=== PATIENT | female | born 1985 | race Caucasian/White ===

== ENCOUNTER → 2018-06-13 10:26 | Outpatient (CLI) | payer OTHER, SELFPAY ==
[2018-06-13 11:01] LABS: Mucous, Urine 0 SEEN /hpf (<or=2+)
[2018-06-13 11:38] LABS: Color, Urine Yellow (Yellow); Glucose, Dipstick Normal (Normal); Ketone-Dipstick Negative (Negative); Leukocyte Esterase-Dipstick 500 /ul (Negative); Nitrite-Dipstick Negative (Negative); Occult Blood-Urine 250 /ul (Negative); Protein-Dipstick 100 mg/dl (Negative); Urine Bilirubin Dipstick Negative (Negative); Urine Clarity Sl. Cloudy (Clear); Urine Urobilinogen Normal (Normal)
[2018-06-13 11:53] LABS: Bacteria 1+ /hpf (None Seen); Red Blood Cells-Urine 25-50 SEEN /hpf (0-5); Squamous Epithelial Cells - UA 0-5 SEEN /hpf (5-10); White Blood Cells 25-50 SEEN /hpf (0-5)
== END ==
PROVIDERS: Visit Provider Physician Assistant Surgical
DX: R30.0 Dysuria (principal)
CPT/HCPCS: 81001; 87086; 87088; 87186

== ENCOUNTER → 2018-10-12 18:30 | Outpatient (CLI) | payer OTHER, SELFPAY ==
[2018-07-27 09:02] VITALS: BMI 30.5
[2018-10-17 16:23] LABS: HPV Reflexed? NOT INDICATED
--- OUTSIDE RECORDS SUMMARY | 2018-12-17 08:16 | XMS RPT_ITS ---
:1985 Author Organization OHIP Care Team Providers Name Role Phone Abbi Perez Attending Unavailable Abbi Perez Referring Unavailable Claudio Do Attending Unavailable Claudio Do Attending Unavailable Claudio Do Referring Unavailable Sanna Brown Attending Unavailable PROBLEMS PROBLEMS DATE TYPE CONDITION / CODE ATTENDING STATUS SOURCE 10/13/2018 Unknown Z12.4 - Abbi Perez Active [place] Encounter for Community screening for Hospital malignant Repository neoplasm of cervix / Z12.4(ICD-10) 06/13/2018 Unknown R30.0 - Dysuria Claudio Do Active [place] / R30.0(ICD-10) [facility] Hospital Repository 06/12/2018 Unknown N39.0 - Urinary Claudio Do Active [place] tract infection, Community site not Hospital specified / Repository N39.0(ICD-10) PROCEDURES PROCEDURES No Procedure Records FoundRESULTS RESULTS PAP I-G W/RFX HRHPV Collected: 10/12/2018 Status: F Source: [place] 3:30 PM REPLACED BY [facility] REPOSITORY Order Comment: CYTOLOGY INFORMATION: - CLINICAL INFORMATION: - DATE LMP/MENOPAUSE: 09/30/18 - COLLECTION VIAL: Thin Prep Vial - SOCIAL WORKER PALLIATIVE CARE SOURCE: CERVICAL/ENDOCERVICAL - COLLECTION TECHNIQUE: BRUSH/SPATULA Specimen Comment: [id number] Specimen Comment: Source.............Cervix;Endocervix Specimen Comment: LMP / Prev Treat...[id number]=[id number] Specimen Comment: No. of containers..01 ThinPrep Vial TYPE CODE TESTS RESULT OUT OF RANGE REFERENCE UNITS LAB L7400.0800 . Normal DIAGN Comment Result Comment: NEGATIVE FOR INTRAEPITHELIAL LESION OR MALIGNANCY. LAB L7400.0900 . Normal ADEQ Comment Result Comment: Satisfactory for evaluation. No endocervical component is identified. LAB L7400.1400 . Normal PERFORM Comment Result Comment: Paola Jeronimo, Cement Loader (ASCP) LAB L7400.2575 . Normal TEST METHOD Comment Result Comment: This liquid based ThinPrep(R) pap test was screened with the use of an image guided system. LAB L7400.2600 . Normal . COMM LAB L7400.2700 . Normal PAPSMR Comment Result Comment: The Pap smear is a screening test designed to aid in the detection of premalignant and malignant conditions of the uterine cervix. It is not a diagnostic procedure and should not be used as the sole means of detecting cervical cancer. Both false-positive and false-negative reports do occur. LAB L7400.2800 . Normal HPV RFLX Comment Result Comment: The HPV DNA reflex criteria were not met with this specimen result therefore, no HPV testing was performed. Performed at: [address] [id number] Equal Opportunity Assistant: Anna Aguirre MD, Phone: [phone] Performed By: #### L7400.0350 #### [facility] (refer to report for specific site) refer to report for address and phone number URGENT CARE VISIT Observed: 07/27/2018 Status: F Source: [place] RE[place] 9:35 AM [facility] [place] [place] [address] [place] [address] [address] [place] [address] OFFICE VISIT Date of Service: 07/27/18 MR#: [id number] Acct: [id number] Name: JEREMIAH WEST Rep #: [id number] : 1985 Provider: MAREK Brown Age/Sex: 32/F Location[place] [facility] Status: Signed Intake Vital Signs07/27/18 Height 5 ft 7 in 11/02/18 Weight: 195 lb 07/27/18 Body Mass Index (BMI) 30.5 07/27/18 Blood Pressure 116/74 Intake Visit Reasons: strep 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 She states her daughter has been treated for it for a week. This morning she woke up with a left ear ache/pressure, and a cotton throat, not severe pain. strep screen here in clinic is positive. She denies any other symptoms. ROS Const Constitutional: No body ache, chills, fatigue, fever(s), night sweats, change in appetite, weakness, frequent falls, headache(s) or excessive sweating Eyes Eyes: No visual disturbances, light sensitivity, eye pain or change in vision ENT ENT: Positive for ear pain (left) and sore throat (just cotton feeling); no ear discharge, hearing loss, dizziness/vertigo, nasal discharge, difficulty swallowing, neck pain or headache(s) Resp Respiratory: No cough, chest congestion, hemoptysis, shortness of breath or wheezing Cardio Cardiology: No shortness of breath, irregular heart rhythm, lightheadedness, chest pain at rest, chest pain with exertion, generalized swelling, orthopnea, palpitations or excessive sweating Gastro GI: No difficulty swallowing, abdominal pain, bloating, change in bowel habits, diarrhea, blood in stool, Black,tarry stools, nausea/dyspepsia or vomiting Genitourinary-Female: No burning urination, urinary frequency, urinary urgency, blood in urine or Vaginal Itching Musc Musculoskeletal: No joint pain, back pain, numbness, tingling or neck pain Skin Skin: No lesions, itching or rash Neuro Neurology: No visual disturbances, numbness, tingling, abnormal speech, confusion, unsteady gait/balance, dizziness, weakness, frequent falls, loss of vision or headache(s) Psych Psychiatric: No change in appetite, No confusion, No anxiety, No depression Endo Endocrine: No fatigue, cold intolerance, excessive sweating, flushing, heat intolerance or increased thirst/drinking Aller/Imm Allergy/Immunologic: No wheezing, itchy eyes, food intolerance, seasonal allergy symptoms or hives Rey/Lymp Hematologic/Lymphatic: No easy bruising Exam Const General: cooperative, no acute distress Orientation: alert, oriented x3 HENMT Head: normal to inspection, normocephalic Ears: hearing grossly normal bilaterally, external ears normal, TM normal on the right, TM normal on the left, no periauricular adenopathy, EAC's normal Nose: nasal mucous membranes and turbinates normal, no nasal discharge Face and sinus: normal facial exam, sinuses nontender Mouth: oral mucosae normal, oropharynx normal, tongue normal Teeth and gingiva: dentition normal, gingiva normal Throat: posterior oropharynx normal Eyes General: appearance normal, both eyes and all related structures Eyelids: eyelids normal Conjunctivae: conjunctivae normal Sclera: sclerae normal Pupils: PERRL, normal by confrontation EOM: EOM intact bilaterally Direct ophthalmoscopy: normal light reflex, no photophobia Neck Neck: normal visual inspection, full ROM, no meningeal signs, trachea midline, supple, lymphadenopathy (minimal post cerv node on the left, minimally tender) Neck mass: No Thyroid: thyroid normal Carotids: no bruits Lymphatic: lymphadenopathy (minimal , left post cervical) Chest Chest palpation AND inspection: normal inspection of the chest Resp Effort AND Inspection: normal respiratory effort, able to speak in complete sentences, symmetric chest movement, no audible wheezes, no cough, not labored, no respiratory distress Auscultation: Bilateral: Clear to Auscultation Cardio Rate: regular rate Rhythm: regular rhythm Heart Sounds: S1 normal, S2 normal GI Inspection: normal to inspection Auscultation: normal bowel sounds Palpation: soft, no hepatosplenomegaly, no pulsatile masses Musc Musculoskeletal: No joint tenderness or joint redness Skin General: no rashes or lesions noted Neuro General: alert, oriented x3, moves all extremities Cognition: normal cognition Speech: speech normal Gait: normal gait Motor: muscle tone normal throughout Extrem General: normal to inspection Psych Appearance: grossly normal, well kempt Mental Status: mental status grossly normal Affect: normal affect Speech and Movement: speech and movement normal Attitude: cooperative Thought Process: normal Thought Content: normal Assessment AND Plan Problems 1. Strep pharyngitis J02.0 Plan Amoxil 875 mg bid x 10 days called to [facility] Push fluids Observe rest of family. F/u with PCP if symptoms persist Coding Level of Care Code Off vis,est,level 3 Diagnoses Strep pharyngitis J02.0 07/27/18 0935 <Electronically signed by Sanna JARA> Date Sanna JARA Cosigner Signature: Date (if applicable) CC: URGENT CARE VISIT Observed: 06/12/2018 Status: F Source: [place] RE[place] 4:57 PM [facility] [address] [place] [address] OFFICE VISIT Date of Service: 06/12/18 MR#: [id number] Acct: [id number] Name: JEREMIAH WEST Rep #: [id number] : 1985 Provider: Claudio JARA Age/Sex: 32/F Location: [facility] Status: Signed Intake Vital Signs06/12/18 Height 5 ft 7 in 06/12/18 Weight: 195 lb 06/12/18 Body Mass Index (BMI) 30.5 06/12/18 Blood Pressure 124/78 Intake Visit Reasons: Urinary tract infection Chief Complaint: dysuria 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 Accompanied by: self Is patient in pain?: No Allergies No Known Allergies Allergy (Unverified 06/12/18 16:38) Medications nitrofurantoin monohydrate/macrocrystals 100 mg capsule 1 cap PO Q12H 7 Days #14 cap 06/12/18 [Rx Confirmed 06/12/18] phenazopyridine 100 mg tablet 100 mg PO TID PRN 0 Days #7 tab 06/12/18 [Rx Confirmed 06/12/18] PFSH Medical History History of hemorrhoids (Acute) Surgical History History of 3 sections (Acute) Social History Smoking Status: Never smoker alcohol intake: never HPI HPI Chief Complaint: dysuria Details: JEREMIAH WEST, is a 32 F who presents to the office today for complaint of dysuria, urinary frequency and hematuria for the past 24 hours. Patient states that her symptoms started with hematuria yesterday then have slowly developed into dysuria last night and today. She was reports that hematuria has resolved. She has had UTIs in the past with similar type symptoms. She denies fever, chills, sweats. No nausea, vomiting, diarrhea. No other associated symptoms or alleviating/aggravating factors. ROS Const Constitutional: No body ache, chills or fever(s) Resp Respiratory: No shortness of breath Cardio Cardiology: No lightheadedness, palpitations or irregular heart rhythm Gastro GI: No abdominal pain Genitourinary-Female: Positive for burning urination, painful urination, urinary frequency and blood in urine; no pelvic pain or painful intercourse Neuro Neurology: No confusion or behavioral changes Psych Psychiatric: No confusion, No behavioral changes Exam Const General: cooperative, healthy appearing Resp Effort AND Inspection: normal respiratory effort Auscultation: Bilateral: Clear to Auscultation Cardio Rate: regular rate Rhythm: regular rhythm GI Auscultation: normal bowel sounds General: No CVA tenderness Psych Appearance: grossly normal Mental Status: mental status grossly normal Assessment AND Plan 1. Acute cystitis with hematuria N30.01 Status Acute Plan Macrobid and Pyridium as prescribed today. Encouraged to get plenty of rest, drink lots of clear liquids, and use Tylenol or Ibuprofen (unless contraindicated) for fever and comfort. Patient also educated on other symptomatic management techniques. To be seen in 7-10 days if no improvement; sooner if worsening of symptoms. Patient advised of potential red flags and when appropriate report to the ED. Patient verbalized understanding of all the above. Plan Detail Other Orders Orders: Other Medications New: nitrofurantoin monohyd/m-cryst 100 mg administer with a meal1 cap PO Q12H 7 days N39.0 /food; swallow whole; do not open, crush, dissolve , or chew Coding Level of Care Code Off vis,new,level 3 Diagnoses Acute cystitis with hematuria N30.01 Urinary tract infection type: acute cystitis Hematuria presence: with hematuria 06/12/18 1657 <Electronically signed by Claudio JARA> Date Claudio JARA Cosigner Signature: Date (if applicable) CC: URINALYSIS, COMPLETE Collected: 06/12/2018 Status: F Source: [place] 4:30 PM [facility] [place] Order Comment: How was Urine Obtained? CLEAN CATCH TYPE CODE TESTS RESULT OUT OF RANGE REFERENCE UNITS LAB L400.3000 Yellow COLOR Normal Yellow LAB L400.3050 Clear Normal CLARITY Sl. Cloudy LAB L400.3200 Normal mg/dl Normal GLUCOSE, UR Normal LAB L400.3300 Negative mg/dL Normal BILIRUBIN URINE Negative LAB L400.3400 Negative mg/dl Normal KETONE UR Negative LAB L400.3465 1.002-1.030 Normal SP.GR. DIPSTX 1.010 LAB L400.3550 5.0 - 8.0 pH UR Normal 6.0 LAB L400.3600 Negative mg/dl High PROT DIPSTX 100 LAB L400.3700 Normal mg/dl Normal UROBILI Normal LAB L400.3750 Negative Normal NITRITE UR Negative LAB L400.3780 Negative /ul High OCCULT BLOOD-UR 250 LAB L400.3800 Negative /ul High LEUK ESTERASE 500 LAB L400.4050 0-5 /hpf WBC Normal 25-50 SEEN LAB L400.4100 0-5 /hpf Normal RBC-UA 25-50 SEEN LAB L400.4150 5-10 /hpf SQUAM Normal EPI 0-5 SEEN LAB L400.4300 None Seen /hpf 1+ Normal BACTERIA LAB L400.4350 <or=2+ /hpf 0 Normal MUCUS, URINE SEEN Performed By: #### L400.0001, M100.0650 #### [facility] [address] [place], [address] Observed: 06/12/2018 Status: F Source: [place] CULTURE, URINE 4:30 PM [facility] [place] Urine Culture ORGANISM 1: Presumptive E. coli [place] Count 11,000-25,000 Presumptive E. coli: REACTION Amoxacillin/Clavulanic Acid $ <=2 S Ampicillin $ <=2 S Ampicillin/Sulbactam $ <=2 S Cefazolin $ <=4 S Cefepime $ <=1 S Ceftriaxone $ <=1 S Ciprofloxacin $ <=0.25 S ESBL - Ertapenim $$$ <=0.5 S Gentamicin $ <=1 S Imipenem *NF <=0.25 S Levofloxacin $ <=0.12 S Nitrofurantoin $ 32 S Piperacillin/Tazobactam $$ <=4 S Tobramycin $ <=1 S Trimethoprim/Sulfametho $ <=20 S (NF) indicates non-formulary drug at [facility]. Approval by Infectious Disease Specialist required before non-formulary drugs may be ordered and/or dispensed. Performed By: #### L400.0001, M100.0650 #### [facility] [address] [place], [address] ALLERGIES ALLERGIES DATE TYPE / CODE NAME / CODE REACTION SEVERITY SOURCE 07/27/2018 Drug No Known Unknown [facility] Allergy/4160 Allergies/F00 Hospital 35967(SNOMED [id number](RXNOR Repository CT) M) ENCOUNTERS ENCOUNTERS ADMIT/DISCHARGE ACCOUNT ADMITTING ENCOUNTER LOCATION SOURCE NUMBER CLASS 10/12/2018 [id number] Ambulatory [facility] ing:LABSPEC Repository 07/27/2018/ [id number] Ambulatory BMSBuilding:B [address] Repository 06/13/2018 [id number] Ambulatory [facility] ing:LABSPEC Repository 06/12/2018/ [id number] Ambulatory BMSBuilding:B [place] [address] [facility] Repository PAYERS PAYERS ENCOUNTER GUARANTOR PAYER SUBSCRIBER SOURCE 10/12/2018 CEZAR [id number] Primary CEZAR PARRYDOB: [place] [address] Insurance[id number] Number: Hospital [address]Hrx: 330 [id number] Repository [phone] () Date:[id number] [address] [address]WT: 10/12/2018 Secondary NOT GIVENUNK [place] Insurance:SELF PAY [facility] Number: Effective Repository Date:2018-10-12 07/27/2018 CEZAR [id number] Primary CEZAR PARRYDOB: [place] [address] Insurance:[id number] Number: Hospital [id number]: 330 [id number] Repository [phone] () Date:[id number] [address]PW: 07/27/2018 Secondary NOT GIVENUNK [place] Insurance:SELF PAY [facility] Number: Effective Repository Date:2018-07-27 06/13/2018 CEZAR [id number] Primary CEZAR PARRYDOB: [place] [address] Insurance:[place] [id number] Number: Hospital [id number]: 330 [id number] Repository [phone] () Date:[id number] [address]OA: 06/13/2018 Secondary NOT GIVENUNK [place] Insurance:SELF PAY [facility] Number: Effective Repository Date:2018-06-13 06/12/2018 Cezar Parry13 Primary Cezar ParryDOB: [place] [address] Insurance:[employer] [id number] [place] icy Number: Hospital [id number]: 330 [id number] Repository [phone] (HP) Date:4263-06-87[address], [place] [address]TD: 06/12/2018 Secondary NOT GIVENUNK [place] Insurance:SELF PAY [facility] Effective Repository Date:2018-06-12
== END ==
PROVIDERS: Referring Provider Obstetrics & Gynecology; Visit Provider Obstetrics & Gynecology
DX: Z12.4 Encounter for screening for malignant neoplasm of cervix (principal)
CPT/HCPCS: 88175; G0145

== ENCOUNTER 2021-12-31 14:39 | Outpatient (CLI) | payer OTHER, SELFPAY ==
[2022-01-07 13:26] LABS: HPV APTIMA, High Risk Negative (Negative)
== END 2021-12-31 23:59 | disposition home or self-care (01) ==
LOC: LABSPEC 14:41
PROVIDERS: Visit Provider Student in an Organized Health Care Education/Training Program
DX: Z12.4 Encounter for screening for malignant neoplasm of cervix (principal)
CPT/HCPCS: 87624; 88175; G0145

== ENCOUNTER → 2022-12-15 | Outpatient (CLI) | payer OTHER, SELFPAY | END | disposition home or self-care (01) | LOC: LABSPEC 09:43 | PROVIDERS: Visit Provider Physician Assistant | DX: R22.1 Localized swelling, mass and lump, neck (principal) | CPT/HCPCS: 87070; 87077; 87186 ==

== ENCOUNTER → 2023-11-27 | Outpatient (CLI) | payer SELFPAY ==
[2023-11-27 11:20] LABS: Bacteria 0 SEEN /hpf (None Seen); Mucous, Urine 0 SEEN /hpf (<or=2+)
[2023-11-27 11:49] LABS: Color, Urine Straw (Yellow); Glucose, Dipstick Normal (Normal); Ketone-Dipstick Negative (Negative); Leukocyte Esterase-Dipstick 500 /ul (Negative); Nitrite-Dipstick Negative (Negative); Occult Blood-Urine 50 /ul (Negative); Protein-Dipstick Negative (Negative); Specific Gravity, Urine 1.005 (1.002-1.030); Urine Bilirubin Dipstick Negative (Negative); Urine Clarity Sl. Cloudy (Clear); Urine Urobilinogen Normal (Normal)
[2023-11-27 11:57] LABS: Red Blood Cells-Urine 0-5 SEEN /hpf (0-5); Squamous Epithelial Cells - UA 0-5 SEEN /hpf (5-10); White Blood Cells 25-50 SEEN /hpf (0-5)
== END | disposition home or self-care (01) ==
LOC: LAB 10:46
PROVIDERS: Referring Provider Nurse Practitioner Family; Visit Provider Nurse Practitioner Family
DX: R10.9 Unspecified abdominal pain (principal)
CPT/HCPCS: 81001; 87077; 87086; 87088; 87186